=== PATIENT | male | born 1935 | race Caucasian/White ===

== ENCOUNTER 2016-11-22 15:01 | Observation (INO) | payer MEDICARE, OTHER ==
[~2016-11-22] VITALS: Ht 160 cm; Wt 65.4 kg
[~2016-11-22 15:01] MED LIST: ASPI-345 PO; CLOP75TA3 PO; LSNP10T PO; METO25TA60 PO; MTP25TSR PO; NF-ESOM40C PO; OMEP20CA12 PO; SAW450CA4 PO; SIMV5TAB51 PO; SIMV80TA3 PO
[2016-11-22 15:57] LABS: BASOPHILS % (AUTO) 1 % (0-2); EOSINOPHILS # (AUTO) 0.3 10^3uL; EOSINOPHILS % (AUTO) 6 % (0-4); LYMPHOCYTES # (AUTO) 1.5 X10^3; MEAN CORPUSCULAR HEMOGLOBIN 30.3 PG (26.0-34.0); MEAN CORPUSCULAR VOLUME 89 FL (80-100); MEAN PLATELET VOLUME 8.9 FL (6.0-9.5); MONOCYTES # (AUTO) 0.7 X10^3; MONOCYTES % (AUTO) 11 % (3-11); NEUTROPHILS # (AUTO) 3.5 X10^3; NEUTROPHILS % (AUTO) 58 % (51-67); PLATELET COUNT 196 10^3uL (150-450); WHITE BLOOD COUNT 6.01 10^3uL (4.0-11.0)
[2016-11-22 16:10] LABS: ALBUMIN 4.5 g/dL (3.4-5.0); ANION GAP 16.3 MEQ/L (3-15); TOTAL PROTEIN 7.5 g/dL (6.4-8.5)
--- NOTE | 2016-11-22 16:11 | Diagnostic Imaging Report ---
CLINICAL INDICATION: Confusion. EXAM: Axial CT scan of the brain performed without IV contrast. COMPARISON: Head CT without IV contrast dated 07/16/2016. FINDINGS: There is no evidence of acute cerebral infarct, intracranial hemorrhage, or gross mass effect. Again seen focal and patchy areas of low-attenuation white matter changes of both cerebral hemispheres likely representing chronic small vessel ischemic disease. There is stable diffuse brain parenchymal volume loss. There is no significant midline shift or herniation. There is no evidence of hydrocephalus. The basal cisterns are unremarkable. The skull, extracranial soft tissue, and orbits are unremarkable. There is no significant paranasal sinus disease. IMPRESSION: 1: Stable CT scan of the brain with no evidence of acute intracranial process. 2: Age-related brain parenchymal changes with chronic small vessel ischemic disease and brain parenchymal volume loss. Dictated by: Dictated on workstation # [id number]
[2016-11-22] MEDS ORDERED: ASPIRIN 325 MG TAB PO ONE (16:55)
[2016-11-22 18:37] LABS: BILIRUBIN,URINE Negative (Negative); CLARITY,URINE Clear; COLOR,URINE Yellow; GLUCOSE, URINE (UA) Negative (Negative); LEUKOCYTE ESTERASE ,URINE Negative (Negative); PH,URINE 5.5 (5.0 - 8.0); UROBILINOGEN,URINE 0.2 mg/dL (0.2-1.0)
[2016-11-22] MEDS ORDERED: POLYETHYLENE GLYCOL 17 GM (MIRALAX) PACKET PO PRN (19:05)
[2016-11-22] MEDS ORDERED: ACETAMINOPHEN 325 MG TAB (TYLENOL) PO PRN (19:05)
[2016-11-22] MEDS ORDERED: ONDANSETRON 4 MG (ZOFRAN) ORAL DISSOLVE TAB PO PRN (19:05)
[2016-11-22] MEDS ORDERED: PROMETHAZINE HCL INJ 12.5 MG in SODIUM CHLORIDE 25 ML IV PRN (19:05)
[2016-11-22] MEDS ORDERED: MAGNESIUM HYDROXIDE 80MG/ML (MILK OF MAGNESIA) 30 ML UDC PO PRN (19:05)
[2016-11-22] MEDS ORDERED: DOCUSATE SODIUM 100 MG (COLACE) CAP PO PRN (19:05)
[2016-11-22] MEDS ORDERED: ALLO100T PO (19:15)
[2016-11-22] MEDS ORDERED: TAMS0.4C2 PO (19:15)
[2016-11-22 19:30] VITALS: BP 198/109
[2016-11-22 19:32] VITALS: BP 198/109
[2016-11-22 19:33] VITALS: BP 200/80
--- NOTE | 2016-11-22 20:08 | NUR ---
@183- Pt admitted to room 301 via w/c from ED accompanied by Son, Paddy and Amanda El Sup. Pt transfers with 1 SBA to bed. @1844 Pt to Rad for CXR @1934- Pt ate ham sandwich and cookie. Denies pain or other needs. oriented to self and place but confused to month/year and situation. States "I'm just at that point that I forget some things." Oriented to call light and room. Pressure pad and bed alarm in place for patient safety.
[2016-11-22] MEDS ORDERED: HALOPERIDOL 5 MG/ML (HALDOL) 1 ML AMP IV PRN (20:50)
[2016-11-22] MEDS ORDERED: hydrALAZINE 20 MG/ML (APRESOLINE) 1 ML VIAL IV PRN (20:50)
--- NOTE | 2016-11-22 20:50 | History and Physical (E) ---
History & Physical PCP: Hawk Magana MD CC: Confusion, dementia HPI Isidoro Monge is a 81 year old male admitted from ED 11/22 where he presented with acutely worse confusion today. Has dementia but today he had worse confusion. Had difficulty getting into his house. Went to his religious for help. Called son, called PCP. Was eventually brought to ED. ED exam reportedly unremarkable (NIH stroke scale score = 0) and labs were reassuring. UA was negative for UTI. CT head negative for acute changes. CXR not suggestive of acute process. For concern of acute confusion and for benefit of further observation, he was admitted. On arrival to unit, interactive, pleasant. NAD. Family left. Patient provides history. Oriented to place. Did not know year without looking on marker board. Despite seeing the month number, he couldn't recall "October." Could not recall day of week. Oriented to place and self. States he is here because his sons were afraid "I was starting to lose it." Has poor recall of events earlier today. Does not recall problems getting into his house or seeking help at religious. PMH * Dementia * HTN * HLD * GERD * IA * CAD * testicular torsion PSH * testicular torsion repair? * hernia repair * carpal tunnel release * EGD ALLERGIES: Please see list at end of report. HOME MEDICATIONS: Please see list at end of report. FH Mom of unknown causes. Father of lung disease (smoker). SH . Retired. Lives with son in [place]. Remote history of tobacco use but none currently. No drug use or alcohol use. ROS Obtained from patient but he has questionable recall. CONSTITUTION: Denies weight loss or gain. Denies fever or chills. HEENT: No change in vision or hearing. No sores in mouth, sore throat. CV: No chest pain, palpitations. PULM: No cough, shortness of breath, difficulty breathing. GI: No upset stomach, nausea, vomiting, constipation, or diarrhea. No blood in stool. : No dysuria. No blood in urine. MS: No new muscle or joint aches and pains. NEURO: No numbness or tingling. No weakness. INTEG: No rashes, lesions, or sores. ENDO: No heat or cold intolerance. HEME/LYMPH: No easy bruising or bleeding. No swollen glands. PSYCH: No change in mood or behavior. OBJECTIVE Vital Signs Date Time Temp Pulse Resp B/P Pulse Ox O2 Delivery O2 Flow Rate FiO2 11/22/16 16:16 97.6 69 18 98 Room Air 11/22/16 15:13 182/95 GEN: Awake, interactive, pleasantly disoriented but able to answer questions and complete tasks. HEENT: EOMI, clear sclerae, pupils equal. Moist oral mucosa. CV: RRR S1 S2 normal with no murmur LUNGS: CTA B without R/R/W. ABD: Soft, NT/ND with normal bowel sounds. EXTR: No C/C/E. Normal peripheral pulses. INTEG: No rash. Age related changes. NEURO: No focal motor neuro deficit. NIH stroke scale score in ED = 0. Weight: 65.2 kg Laboratory Results-14 Days 11/22/16 13:46: Alanine Aminotransferase (ALT/SGPT) 42, Albumin 4.5, Albumin/Globulin Ratio 1.500, Alkaline Phosphatase 106, Anion Gap 16.3H, Aspartate Amino Transf (AST/ SGOT) 31, BUN/Creatinine Ratio 15, Basophils # (Auto) 0.0, Basophils (%) (Auto) 1, Blood Urea Nitrogen 16, Calcium Level 9.4, Calcium/Ionized Calcium Ratio 4.0 , Calculated Osmolality 275L, Carbon Dioxide Level 22, Chloride Level 107, Creatinine 1.09, Eosinophils # (Auto) 0.3, Eosinophils (%) (Auto) 6H, Estimat Glomerular Filtration Rate 78.2, Estimated GFR (Non- 64.6, Glucose Level 98#, Hematocrit 44.70, Hemoglobin 15.2, Lymphocytes # (Auto) 1.5, Lymphocytes (%) (Auto) 24, Mean Corpuscular Hemoglobin 30.3, Mean Corpuscular Hemoglobin Concent 34.0, Mean Corpuscular Volume 89, Mean Platelet Volume 8.9, Monocytes # (Auto) 0.7, Monocytes (%) (Auto) 11, Neutrophils # (Auto) 3.5, Neutrophils (%) (Auto) 58, Platelet Count 196, Potassium Level 3.8, Red Blood Count 5.01, Red Cell Distribution Width 12.7, Sodium Level 142, Total Bilirubin 1.1H, Total Protein 7.5, White Blood Count 6.01 11/22/16 17:25: Urine Bilirubin Negative, Urine Blood Negative, Urine Clarity Clear, Urine Collection Type Clean catch, Urine Color Yellow, Urine Glucose (UA) Negative, Urine Ketones Negative, Urine Leukocyte Esterase Negative, Urine Nitrite Negative, Urine Protein Negative, Urine Specific [place] 1.020, Urine Urobilinogen 0.2, Urine pH 5.5 IMAGING 11/22/16 CXR: Radiologist interpretation pending. No apparent acute changes. 11/22/16 CT HEAD WO CLINICAL INDICATION: Confusion. EXAM: Axial CT scan of the brain performed without IV contrast. COMPARISON: Head CT without IV contrast dated 07/16/2016. FINDINGS: There is no evidence of acute cerebral infarct, intracranial hemorrhage, or gross mass effect. Again seen focal and patchy areas of low-attenuation white matter changes of both cerebral hemispheres likely representing chronic small vessel ischemic disease. There is stable diffuse brain parenchymal volume loss. There is no significant midline shift or herniation. There is no evidence of hydrocephalus. The basal cisterns are unremarkable. The skull, extracranial soft tissue, and orbits are unremarkable. There is no significant paranasal sinus disease. IMPRESSION: 1: Stable CT scan of the brain with no evidence of acute intracranial process. 2: Age-related brain parenchymal changes with chronic small vessel ischemic disease and brain parenchymal volume loss. ASSESSMENT Isidoro Monge is a 81 year old male admitted from ED 11/22 where he presented from home with increased confusion in the setting of known dementia. He had workup that was fairly unremarkable but he was noted to have hypertension with BP 200's/100's PLAN * Hypertensive Urgency: Possibly explains his acute mental status change today. Takes metoprolol and lisinopril at home. Continued both. Hydralazine for SBP > 165 or DBP > 100. * Delirium: Attributed to hypertension. Infections and inflammatory etiologies less likely based on workup thus far. CT head showed no acute changes. For agitation, PRN haloperidol. * HTN, Uncontrolled: Metoprolol, lisinopril continued. Dose of lisinopril increased. * F/E/N: Encourage fluid intake. Regular diet. Peripheral IV. I&O, daily weight. * Prophylaxis: Enoxaparin * Code Status: Full * Dispo: Observation pending utilization review and further workup. CHRONIC ISSUES * BPH: Tamsulosin * Dementia Observe. * HLD: Simvastatin * GERD: Pantoprazole (sub for omeprazole) Allergies/Home Medications Allergies: Coded Allergies: No Known Drug Allergies (Unverified , 07/16/16) Reported Home Medications Scheduled Allopurinol (Allopurinol) 100 MG PO DAILY (Reported) Aspirin (Aspirin) 81 MG PO DAILY (Reported) Lisinopril (Lisinopril) 10 MG PO DAILY (Reported) Metoprolol Tartrate (Metoprolol Tartrate) 25 MG PO BID (Reported) Omeprazole (Omeprazole) 20 PO DAILY (Reported) Simvastatin (Simvastatin) 80 MG PO HS (Reported) Tamsulosin HCl (Tamsulosin HCl) 0.4 MG PO DAILY (Reported) Copies to: End of Report . ASHTYN HERMOSILLO MD Nov 22, 2016 19:02
[2016-11-22] MEDS: meTOprolol TARTRATE 25 MG (LOPRESSOR) TABLET PO SCH (21:03)
[2016-11-22] MEDS: SIMvastatin 40 MG (ZOCOR) TAB PO SCH (21:03)
[2016-11-23 00:06] VITALS: BP 152/76
[2016-11-23 06:03] LABS: BASOPHILS % (AUTO) 0 % (0-2); EOSINOPHILS # (AUTO) 0.2 10^3uL; EOSINOPHILS % (AUTO) 4 % (0-4); LYMPHOCYTES # (AUTO) 1.3 X10^3; MEAN CORPUSCULAR HEMOGLOBIN 30.3 PG (26.0-34.0); MEAN CORPUSCULAR HGB CONC 33.9 g/dL (31.0-37.0); MEAN CORPUSCULAR VOLUME 90 FL (80-100); MEAN PLATELET VOLUME 9.3 FL (6.0-9.5); MONOCYTES # (AUTO) 0.7 X10^3; MONOCYTES % (AUTO) 11 % (3-11); NEUTROPHILS # (AUTO) 3.7 X10^3; NEUTROPHILS % (AUTO) 63 % (51-67); PLATELET COUNT 196 10^3uL (150-450); WHITE BLOOD COUNT 5.94 10^3uL (4.0-11.0)
[2016-11-23] MEDS: PANTOPRAZOLE 40 MG (PROTONIX) TAB PO SCH (06:21)
--- NOTE | 2016-11-23 06:28 | NUR ---
Rested off and on throughout the night. Pleasant, talkative, is ready to leave as does not like the alarms that sound when he gets up. In recliner this morning watching TV, ate cookie, denies complaints or needs other than going home.
[2016-11-23 06:57] LABS: ANION GAP 16.8 MEQ/L (3-15)
--- NOTE | 2016-11-23 07:38 | NUR ---
Pt up and getting ready to go home. Pt is confused and does not want to stay in the hospital. Pt has a tabs alarm on but continues to get up out of the chair. Pt is alert but not oriented x4.
[2016-11-23 07:48] VITALS: BP 189/86
--- NOTE | 2016-11-23 07:52 | Diagnostic Imaging Report ---
INDICATION: Confusion. Comparison is made with prior examination of 07/16/16. FINDINGS: There is cardiomegaly. Mediastinum is unremarkable. There is no pleural effusion, pneumothorax or pneumonia. IMPRESSION: No acute cardiopulmonary abnormality. Cardiomegaly. Dictated by: Dictated on workstation # [id number]
[2016-11-23] MEDS: ASPIRIN 81 MG CHEW (LOW-DOSE) PO SCH (08:38)
[2016-11-23] MEDS: TAMSULOSIN 0.4 MG (FLOMAX) CAP PO SCH (08:38)
[2016-11-23] MEDS: ALLOPURINOL 100 MG (ZYLOPRIM) TAB PO SCH (08:38)
[2016-11-23] MEDS: lisINopril 20 MG (PRINIVIL) TABLET PO SCH (08:38)
[2016-11-23] MEDS: meTOprolol TARTRATE 25 MG (LOPRESSOR) TABLET PO SCH ×2 (08:38→20:25)
[2016-11-23] MEDS: ENOXAPARIN 40 MG/0.4 ML (LOVENOX) SYR SC SCH (08:39)
--- NOTE | 2016-11-23 10:00 | NUR ---
Sons sitting at bedside talking to pt. Pt continues to want to go home with son.
[2016-11-23] MEDS ORDERED: SMV20T PO (10:22)
--- NOTE | 2016-11-23 10:22 | Progress Note (E) ---
Progress Note SUBJECTIVE Overnight, no major issues reported. Still remains fairly hypertensive with BP 189/86 currently. Giving hydralazine PRN. Already takes lisinopril and metoprolol (BID). HR already mildly bradycardic so no room to increase metoprolol. Adding HCTZ. Continuing observation to assess for mental status changes and response to BP therapy. Sons present. Updated all on findings, plan of care. Sons don't know what dementia workup was done by PCP. Suggested checking B12 but deferring to PCP otherwise. OBJECTIVE Vital Signs Date Time Temp Pulse Resp B/P Pulse Ox O2 Delivery O2 Flow Rate FiO2 11/23/16 07:48 97.1 54 18 189/86 98 Room air 11/22/16 19:32 o.00 I & O 11/22/16 11/23/16 Cumulative From/Thru 19:00 07:00 11/22/16 15:13 - 11/23/16 05:46 Intake Total 337 ml 337 ml Output Total 600 ml 600 ml Balance -263 ml -263 ml GEN: Awake, interactive, pleasantly disoriented but has better recall of recent events. Dressed in home clothes. HEENT: EOMI, clear sclerae, pupils equal. Moist oral mucosa. CV: RRR S1 S2 normal with no murmur LUNGS: CTA B without R/R/W. ABD: Soft, NT/ND with normal bowel sounds. EXTR: No C/C/E. Normal peripheral pulses. INTEG: No rash. Age related changes. NEURO: No focal motor neuro deficit. NIH stroke scale score in ED = 0. Lab-Past 14 Days, 35 Results 11/22/16 13:46: Alanine Aminotransferase (ALT/SGPT) 42, Albumin 4.5, Albumin/Globulin Ratio 1.500, Alkaline Phosphatase 106, Anion Gap 16.3H, Aspartate Amino Transf (AST/ SGOT) 31, BUN/Creatinine Ratio 15, Basophils # (Auto) 0.0, Basophils (%) (Auto) 1, Blood Urea Nitrogen 16, C-Reactive Protein < 0.50, Calcium Level 9.4, Calcium /Ionized Calcium Ratio 4.0, Calculated Osmolality 275L, Carbon Dioxide Level 22 , Chloride Level 107, Creatinine 1.09, Eosinophils # (Auto) 0.3, Eosinophils (% ) (Auto) 6H, Estimat Glomerular Filtration Rate 78.2, Estimated GFR (Non- 64.6, Glucose Level 98#, Hematocrit 44.70, Hemoglobin 15.2, Lymphocytes # (Auto) 1.5, Lymphocytes (%) (Auto) 24, Mean Corpuscular Hemoglobin 30.3, Mean Corpuscular Hemoglobin Concent 34.0, Mean Corpuscular Volume 89, Mean Platelet Volume 8.9, Monocytes # (Auto) 0.7, Monocytes (%) (Auto ) 11, Neutrophils # (Auto) 3.5, Neutrophils (%) (Auto) 58, Platelet Count 196, Potassium Level 3.8, Red Blood Count 5.01, Red Cell Distribution Width 12.7, Sodium Level 142, Total Bilirubin 1.1H, Total Protein 7.5, White Blood Count 6.01 11/22/16 17:25: Urine Bilirubin Negative, Urine Blood Negative, Urine Clarity Clear, Urine Collection Type Clean catch, Urine Color Yellow, Urine Glucose (UA) Negative, Urine Ketones Negative, Urine Leukocyte Esterase Negative, Urine Nitrite Negative, Urine Protein Negative, Urine Specific [place] 1.020, Urine Urobilinogen 0.2, Urine pH 5.5 11/23/16 05:00: Albumin 4.0, Anion Gap 16.8H, Basophils # (Auto) 0.0, Basophils (%) (Auto) 0, Blood Urea Nitrogen 19H, Calcium Level 9.4, Carbon Dioxide Level 23, Chloride Level 109H, Creatinine 1.20, Eosinophils # (Auto) 0.2, Eosinophils (%) (Auto) 4 , Estimat Glomerular Filtration Rate 70.0, Estimated GFR (Non- 57.8, Glucose Level 91, Hematocrit 43.70, Hemoglobin 14.8, Lymphocytes # (Auto) 1.3, Lymphocytes (%) (Auto) 21, Mean Corpuscular Hemoglobin 30.3, Mean Corpuscular Hemoglobin Concent 33.9, Mean Corpuscular Volume 90, Mean Platelet Volume 9.3, Monocytes # (Auto) 0.7, Monocytes (%) (Auto) 11, Neutrophils # (Auto ) 3.7, Neutrophils (%) (Auto) 63, Platelet Count 196, Potassium Level 4.2, Red Blood Count 4.88, Red Cell Distribution Width 12.8, Sodium Level 145, White Blood Count 5.94, Phosphorus Level 3.7 IMAGING 11/22/16 CHEST PA/LAT (2 VIEW)* INDICATION: Confusion. Comparison is made with prior examination of 07/16/16. FINDINGS: There is cardiomegaly. Mediastinum is unremarkable. There is no pleural effusion, pneumothorax or pneumonia. IMPRESSION: No acute cardiopulmonary abnormality. 11/22/16 CT HEAD WO CLINICAL INDICATION: Confusion. EXAM: Axial CT scan of the brain performed without IV contrast. COMPARISON: Head CT without IV contrast dated 07/16/2016. FINDINGS: There is no evidence of acute cerebral infarct, intracranial hemorrhage, or gross mass effect. Again seen focal and patchy areas of low-attenuation white matter changes of both cerebral hemispheres likely representing chronic small vessel ischemic disease. There is stable diffuse brain parenchymal volume loss. There is no significant midline shift or herniation. There is no evidence of hydrocephalus. The basal cisterns are unremarkable. The skull, extracranial soft tissue, and orbits are unremarkable. There is no significant paranasal sinus disease. IMPRESSION: 1: Stable CT scan of the brain with no evidence of acute intracranial process. 2: Age-related brain parenchymal changes with chronic small vessel ischemic disease and brain parenchymal volume loss. ASSESSMENT Isidoro Monge is a 81 year old male admitted from ED 11/22 where he presented from home with increased confusion in the setting of known dementia. He had workup that was fairly unremarkable but he was noted to have hypertension with BP 200's/100's PLAN * Hypertensive Urgency: Possibly explains his acute mental status change today. Takes metoprolol and lisinopril at home. Continued both. Hydralazine for SBP > 165 or DBP > 100. * HTN, Uncontrolled: Metoprolol, lisinopril continued. Dose of lisinopril increased. Added HCTZ 11/23. * Delirium: Attributed to hypertension. Infections and inflammatory etiologies less likely based on workup thus far. CT head showed no acute changes. For agitation, PRN haloperidol. * Cognitive Decline: Check B12, methylmalonic acid. * F/E/N: Encourage fluid intake. Regular diet. Peripheral IV. I&O, daily weight. * Prophylaxis: Enoxaparin * Code Status: Full * Dispo: Observation pending utilization review and further workup. Possible D/ C 11/24 if BP improving. CHRONIC ISSUES * BPH: Tamsulosin * HLD: Simvastatin * GERD: Pantoprazole (sub for omeprazole) ASHTYN HERMOSILLO MD Nov 23, 2016 10:22
--- NOTE | 2016-11-23 12:09 | NUR ---
Med Rec partially completed via conversation with son, call to [facility] and bag of medications to verify. Feel that list may be incomplete and would like to call office friday to confirm.
[2016-11-23] MEDS: HYDROCHLOROTHIAZIDE 25 MG (HCTZ) TAB PO SCH (15:30)
[2016-11-23 15:36] VITALS: BP 125/55
[2016-11-23 19:39] VITALS: BP 125/63
[2016-11-23] MEDS: SIMvastatin 40 MG (ZOCOR) TAB PO SCH (20:25)
--- NOTE | 2016-11-23 21:02 | NUR ---
Does not like the tab alarm while seated in recliner, removes it and states "that thing drives me crazy". Ate ice cream at nurses station, pills whole, ambulated mitchell with staff. Stated he was tired and ready for bed.
[2016-11-24 00:36] VITALS: BP 122/47
[2016-11-24] MEDS: PANTOPRAZOLE 40 MG (PROTONIX) TAB PO SCH (06:19)
[2016-11-24 06:55] LABS: ALBUMIN 3.9 g/dL (3.4-5.0); ANION GAP 16.2 MEQ/L (3-15)
--- NOTE | 2016-11-24 07:15 | NUR ---
Report received from Elisa MANCINI and care assumed.
[2016-11-24 08:04] VITALS: BP 155/63
[2016-11-24] MEDS: lisINopril 20 MG (PRINIVIL) TABLET PO SCH (08:41)
[2016-11-24] MEDS: ENOXAPARIN 40 MG/0.4 ML (LOVENOX) SYR SC SCH (08:41)
[2016-11-24] MEDS: ASPIRIN 81 MG CHEW (LOW-DOSE) PO SCH (08:42)
[2016-11-24] MEDS: TAMSULOSIN 0.4 MG (FLOMAX) CAP PO SCH (08:42)
[2016-11-24] MEDS: HYDROCHLOROTHIAZIDE 25 MG (HCTZ) TAB PO SCH (08:42)
[2016-11-24] MEDS: ALLOPURINOL 100 MG (ZYLOPRIM) TAB PO SCH (08:42)
--- NOTE | 2016-11-24 08:44 | Progress Note (E) ---
Progress Note SUBJECTIVE Bradycardic but BP improved. Noted he takes metoprolol tartrate 25 mg BID. Could bradycardia be contributing to confusion? Switched from tartrate to succinate, 25 mg daily. Had increased lisinopril and added HCTZ for BP which is overall improved. Mentation has been stable this admission. He remains pleasant and interactive and has fair recall of events while in hospital. OBJECTIVE Vital Signs Date Time Temp Pulse Resp B/P Pulse Ox O2 Delivery O2 Flow Rate FiO2 11/24/16 08:04 96.8 49 18 155/63 99 Room air o.00 I & O 11/23/16 11/24/16 Cumulative From/Thru 19:00 07:00 11/22/16 15:13 - 11/24/16 05:00 Intake Total 337 ml 775 ml 1449 ml Output Total 400 ml 250 ml 1250 ml Balance -63 ml 525 ml 199 ml GEN: Awake, interactive, pleasantly disoriented but has better recall of recent events. HEENT: EOMI, clear sclerae, pupils equal. Moist oral mucosa. CV: RRR S1 S2 normal with no murmur LUNGS: CTA B without R/R/W. ABD: Soft, NT/ND with normal bowel sounds. EXTR: No C/C/E. Normal peripheral pulses. INTEG: No rash. Age related changes. NEURO: No focal motor neuro deficit. NIH stroke scale score in ED = 0. Lab-Past 14 Days, 35 Results 11/22/16 13:46: Alanine Aminotransferase (ALT/SGPT) 42, Albumin 4.5, Albumin/Globulin Ratio 1.500, Alkaline Phosphatase 106, Anion Gap 16.3H, Aspartate Amino Transf (AST/ SGOT) 31, BUN/Creatinine Ratio 15, Basophils # (Auto) 0.0, Basophils (%) (Auto) 1, Blood Urea Nitrogen 16, C-Reactive Protein < 0.50, Calcium Level 9.4, Calcium /Ionized Calcium Ratio 4.0, Calculated Osmolality 275L, Carbon Dioxide Level 22 , Chloride Level 107, Creatinine 1.09, Eosinophils # (Auto) 0.3, Eosinophils (% ) (Auto) 6H, Estimat Glomerular Filtration Rate 78.2, Estimated GFR (Non- 64.6, Glucose Level 98#, Hematocrit 44.70, Hemoglobin 15.2, Lymphocytes # (Auto) 1.5, Lymphocytes (%) (Auto) 24, Mean Corpuscular Hemoglobin 30.3, Mean Corpuscular Hemoglobin Concent 34.0, Mean Corpuscular Volume 89, Mean Platelet Volume 8.9, Monocytes # (Auto) 0.7, Monocytes (%) (Auto ) 11, Neutrophils # (Auto) 3.5, Neutrophils (%) (Auto) 58, Platelet Count 196, Potassium Level 3.8, Red Blood Count 5.01, Red Cell Distribution Width 12.7, Sodium Level 142, Total Bilirubin 1.1H, Total Protein 7.5, White Blood Count 6.01 11/22/16 17:25: Urine Bilirubin Negative, Urine Blood Negative, Urine Clarity Clear, Urine Collection Type Clean catch, Urine Color Yellow, Urine Glucose (UA) Negative, Urine Ketones Negative, Urine Leukocyte Esterase Negative, Urine Nitrite Negative, Urine Protein Negative, Urine Specific [place] 1.020, Urine Urobilinogen 0.2, Urine pH 5.5 11/23/16 05:00: Albumin 4.0, Anion Gap 16.8H, Basophils # (Auto) 0.0, Basophils (%) (Auto) 0, Blood Urea Nitrogen 19H, Calcium Level 9.4, Carbon Dioxide Level 23, Chloride Level 109H, Creatinine 1.20, Eosinophils # (Auto) 0.2, Eosinophils (%) (Auto) 4 , Estimat Glomerular Filtration Rate 70.0, Estimated GFR (Non- 57.8, Glucose Level 91, Hematocrit 43.70, Hemoglobin 14.8, Lymphocytes # (Auto) 1.3, Lymphocytes (%) (Auto) 21, Mean Corpuscular Hemoglobin 30.3, Mean Corpuscular Hemoglobin Concent 33.9, Mean Corpuscular Volume 90, Mean Platelet Volume 9.3, Monocytes # (Auto) 0.7, Monocytes (%) (Auto) 11, Neutrophils # (Auto ) 3.7, Neutrophils (%) (Auto) 63, Platelet Count 196, Potassium Level 4.2, Red Blood Count 4.88, Red Cell Distribution Width 12.8, Sodium Level 145, White Blood Count 5.94, Phosphorus Level 3.7 11/24/16 05:00: Albumin 3.9, Anion Gap 16.2H, Blood Urea Nitrogen 24H, Calcium Level 9.4, Carbon Dioxide Level 22, Chloride Level 108, Creatinine 1.40, Estimat Glomerular Filtration Rate 58.6, Estimated GFR (Non- 48.4, Glucose Level 100, Potassium Level 4.1, Sodium Level 143, Phosphorus Level 3.8, Methylmalonic Acid [Pending], Vitamin B12 Level [Pending] IMAGING 11/22/16 CHEST PA/LAT (2 VIEW)* INDICATION: Confusion. Comparison is made with prior examination of 07/16/16. FINDINGS: There is cardiomegaly. Mediastinum is unremarkable. There is no pleural effusion, pneumothorax or pneumonia. IMPRESSION: No acute cardiopulmonary abnormality. 11/22/16 CT HEAD WO CLINICAL INDICATION: Confusion. EXAM: Axial CT scan of the brain performed without IV contrast. COMPARISON: Head CT without IV contrast dated 07/16/2016. FINDINGS: There is no evidence of acute cerebral infarct, intracranial hemorrhage, or gross mass effect. Again seen focal and patchy areas of low-attenuation white matter changes of both cerebral hemispheres likely representing chronic small vessel ischemic disease. There is stable diffuse brain parenchymal volume loss. There is no significant midline shift or herniation. There is no evidence of hydrocephalus. The basal cisterns are unremarkable. The skull, extracranial soft tissue, and orbits are unremarkable. There is no significant paranasal sinus disease. IMPRESSION: 1: Stable CT scan of the brain with no evidence of acute intracranial process. 2: Age-related brain parenchymal changes with chronic small vessel ischemic disease and brain parenchymal volume loss. REFERENCE 02/14/2016 ECHO: Summary: 1. LVEF 50%. 2. No pericardial effusion. 3. Mild . 4. Mild AV regurgitation. 5. LUKE calculated at 1.9 cm2. 6. Mild pulmonary valve regurgitation. 7. Mild tricuspid valve regurgitation. ASSESSMENT Isidoro Monge is a 81 year old male admitted from ED 11/22 where he presented from home with increased confusion in the setting of known dementia. He had workup that was fairly unremarkable but he was noted to have hypertension with BP 200's/100's. Uncontrolled hypertension was treated as outlined. He remained pleasantly disoriented to time and mildly to situation but had returned to baseline. PLAN * Hypertensive Urgency: Possibly explains his acute mental status change on admit. Takes metoprolol and lisinopril at home. Continued both. Hydralazine for SBP > 165 or DBP > 100. * HTN, Uncontrolled: Metoprolol, lisinopril continued. Dose of lisinopril increased. Added HCTZ 11/23. On 11/24, bradycardia was noted so metoprolol was switched to succinate, 25 mg daily (an overall 25 mg reduction in total daily dose.) * Bradycardia: Due to metoprolol, most likely. Lowered dose as discussed. Consider further adjustments if bradycardia persists. * Delirium: Attributed to hypertension. Infections and inflammatory etiologies less likely based on workup thus far. CT head showed no acute changes. For agitation, PRN haloperidol. * Cognitive Decline: Check B12, methylmalonic acid. * F/E/N: Encourage fluid intake. Regular diet. Peripheral IV. I&O, daily weight. * Prophylaxis: Enoxaparin * Code Status: Full * Dispo: Observation. Possible D/C 11/24. CHRONIC ISSUES * BPH: Tamsulosin * HLD: Simvastatin * GERD: Pantoprazole (sub for omeprazole) ASHTYN HERMOSILLO MD Nov 24, 2016 08:44
[2016-11-24] MEDS ORDERED: NS FLUSH 10 ML PRN IV (09:00)
[2016-11-24] MEDS ORDERED: D5W 50 ML BAG IV PRN (09:00)
[2016-11-24] MEDS ORDERED: NS FLUSH 3 ML PRN IV (09:00)
[2016-11-24] MEDS ORDERED: NS FLUSH 3 ML DAILY IV SCH (09:00)
--- NOTE | 2016-11-24 09:05 | NUR ---
Pt sitting up in chair at bedside. Pt has eaten breakfast and is content to sit in chair.
--- NOTE | 2016-11-24 10:25 | NUR ---
Pt resting in bed with sons at bedside. Pt requested coffee be taken away and he would like a coke. Coke given to pt. Denies needs at present.
--- NOTE | 2016-11-24 11:53 | NUR ---
Pt up to chair at bedside ready for lunch.
[2016-11-24] MEDS ORDERED: HCT25T PO (13:15)
[2016-11-24] MEDS ORDERED: METO25TA60 PO (13:15)
[2016-11-24] MEDS ORDERED: LSNP20T PO (13:15)
--- NOTE | 2016-11-24 13:15 | Discharge Instructions (E) ---
Discharge Instructions Instructions * You were evaluated and treated for an episode of increased confusion. Based on the workup done in the hospital, there was no clear cause of this episode. You were, however, noted to have high blood pressure and this can sometimes lead to transient confusion. (This is called "hypertensive urgency.") Because of this your blood pressure medications have been adjusted. Review your discharge medication list and the drug handouts provided. * Your B12 level was checked prior to discharge. If this is low your doctor can order B12 supplements. * You had a CT scan of your head which showed no acute changes to account for confusion. An MRI can provide additional information. A prescription for brain MRI was provided at discharge. Call the [facility] Radiology Department on Friday to schedule the MRI. * You were noted to have slow heart rate during this hospitalization. This could lead to poor circulation in the brain and could contribute to confusion. Even though you had high blood pressure this admission, your dose of metoprolol should be lowered because it can cause low heart rate. You can split your current pills in half. See your discharge medication list for details. * To help in your recovery, outpatient physical and occupational therapy have been ordered. Called the [facility] Therapy Department on Friday to schedule your visit. Activity Instructions Because of episodes of confusion, you should no longer drive. Doctor's Appointment Follow-up with your primary care doctor in 3-5 days. Have your MRI scheduled at [facility]. Call the therapy department as directed to scheduled outpatient physical therapy and occupational therapy. Discharge Diet: Heart Healthy ASHTYN HERMOSILLO MD Nov 24, 2016 13:15
--- NOTE | 2016-11-24 14:00 | NUR ---
IV DC'd from [facility] - pressure held until bleeding stopped - drsg applied - no redness or swelling
--- NOTE | 2016-11-24 14:23 | NUR ---
Reviewed discharge medications with patient. Provided patient handout information for new medications. No additional questions or concerns. Patient verbalized understanding of medications.
--- NOTE | 2016-11-24 17:32 | Discharge Summary (E) ---
Discharge Summary (E) Admit Date/Time Nov 22, 2016 at 18:06 Discharge Date/Time Nov 24, 2016 at 14:26 Admitting Provider Juliano Deleon MD Primary Care Provider Hawk Magana MD Attending Provider Juliano Deleon MD Consulting Provider History and Present Illness Isidoro Monge is a 81 year old male admitted from ED 11/22 where he presented from home with increased confusion in the setting of known dementia. He had workup that was fairly unremarkable but he was noted to have hypertension with BP 200's/100's. This was felt to potentially play a role in his episode of acute confusion. Uncontrolled hypertension was treated as outlined. He remained pleasantly disoriented to time and mildly to situation but had returned to baseline mental status at the time of discharge. Updated patient and sons on findings and plan of care. He was discharged home with changes to blood pressure medications as well as other instructions as noted below. Hospital Course and Treatment * Hypertensive Urgency: Possibly explains his acute mental status change on admit. Takes metoprolol and lisinopril at home. Continued both. Hydralazine for SBP > 165 or DBP > 100. At discharge, changed his BP medication regimen as outlined. * HTN, Uncontrolled: Metoprolol, lisinopril continued. Dose of lisinopril increased. Added HCTZ 11/23. On 11/24, bradycardia was noted so metoprolol was switched to succinate, 25 mg daily (an overall 25 mg reduction in total daily dose.) But at discharge, metoprolol tartrate was continued with instruction to split these pills in half. * Bradycardia: Due to metoprolol, most likely. Lowered dose as discussed. Consider further adjustments if bradycardia persists. * Delirium: Attributed to hypertension. Infections and inflammatory etiologies less likely based on workup thus far. CT head showed no acute changes. For agitation, PRN haloperidol but none was needed. His mental status improved to baseline before discharge. * Cognitive Decline: Check B12, methylmalonic acid, both pending at the time of discharge. For further workup of dementia, MRI could be done as outpatient. Ordered on discharge. OT evaluation ordered at discharge to see if there are other interventions for cognitive deficits that would help. * F/E/N: Encourage fluid intake. Regular diet. Peripheral IV. I&O, daily weight. * Prophylaxis: Enoxaparin * Code Status: Full * Dispo: Observation. D/C home 11/24. CHRONIC ISSUES * BPH: Tamsulosin * HLD: Simvastatin * GERD: Pantoprazole (sub for omeprazole) Discharge Physicial Exam General Vital Signs Date Time Temp Pulse Resp B/P Pulse Ox O2 Delivery O2 Flow Rate FiO2 11/24/16 08:04 96.8 49 18 155/63 99 Room air o.00 GEN: Awake, interactive, pleasantly disoriented but has better recall of recent events. HEENT: EOMI, clear sclerae, pupils equal. Moist oral mucosa. CV: RRR S1 S2 normal with no murmur LUNGS: CTA B without R/R/W. ABD: Soft, NT/ND with normal bowel sounds. EXTR: No C/C/E. Normal peripheral pulses. INTEG: No rash. Age related changes. NEURO: No focal motor neuro deficit. NIH stroke scale score in ED = 0. Laboratory/Radiology Data Lab-Past 14 Days, 35 Results 11/22/16 13:46: Alanine Aminotransferase (ALT/SGPT) 42, Albumin 4.5, Albumin/Globulin Ratio 1.500, Alkaline Phosphatase 106, Anion Gap 16.3H, Aspartate Amino Transf (AST/ SGOT) 31, BUN/Creatinine Ratio 15, Basophils # (Auto) 0.0, Basophils (%) (Auto) 1, Blood Urea Nitrogen 16, C-Reactive Protein < 0.50, Calcium Level 9.4, Calcium /Ionized Calcium Ratio 4.0, Calculated Osmolality 275L, Carbon Dioxide Level 22 , Chloride Level 107, Creatinine 1.09, Eosinophils # (Auto) 0.3, Eosinophils (% ) (Auto) 6H, Estimat Glomerular Filtration Rate 78.2, Estimated GFR (Non- 64.6, Glucose Level 98#, Hematocrit 44.70, Hemoglobin 15.2, Lymphocytes # (Auto) 1.5, Lymphocytes (%) (Auto) 24, Mean Corpuscular Hemoglobin 30.3, Mean Corpuscular Hemoglobin Concent 34.0, Mean Corpuscular Volume 89, Mean Platelet Volume 8.9, Monocytes # (Auto) 0.7, Monocytes (%) (Auto ) 11, Neutrophils # (Auto) 3.5, Neutrophils (%) (Auto) 58, Platelet Count 196, Potassium Level 3.8, Red Blood Count 5.01, Red Cell Distribution Width 12.7, Sodium Level 142, Total Bilirubin 1.1H, Total Protein 7.5, White Blood Count 6.01 11/22/16 17:25: Urine Bilirubin Negative, Urine Blood Negative, Urine Clarity Clear, Urine Collection Type Clean catch, Urine Color Yellow, Urine Glucose (UA) Negative, Urine Ketones Negative, Urine Leukocyte Esterase Negative, Urine Nitrite Negative, Urine Protein Negative, Urine Specific [place] 1.020, Urine Urobilinogen 0.2, Urine pH 5.5 11/23/16 05:00: Albumin 4.0, Anion Gap 16.8H, Basophils # (Auto) 0.0, Basophils (%) (Auto) 0, Blood Urea Nitrogen 19H, Calcium Level 9.4, Carbon Dioxide Level 23, Chloride Level 109H, Creatinine 1.20, Eosinophils # (Auto) 0.2, Eosinophils (%) (Auto) 4 , Estimat Glomerular Filtration Rate 70.0, Estimated GFR (Non- 57.8, Glucose Level 91, Hematocrit 43.70, Hemoglobin 14.8, Lymphocytes # (Auto) 1.3, Lymphocytes (%) (Auto) 21, Mean Corpuscular Hemoglobin 30.3, Mean Corpuscular Hemoglobin Concent 33.9, Mean Corpuscular Volume 90, Mean Platelet Volume 9.3, Monocytes # (Auto) 0.7, Monocytes (%) (Auto) 11, Neutrophils # (Auto ) 3.7, Neutrophils (%) (Auto) 63, Platelet Count 196, Potassium Level 4.2, Red Blood Count 4.88, Red Cell Distribution Width 12.8, Sodium Level 145, White Blood Count 5.94, Phosphorus Level 3.7 11/24/16 05:00: Albumin 3.9, Anion Gap 16.2H, Blood Urea Nitrogen 24H, Calcium Level 9.4, Carbon Dioxide Level 22, Chloride Level 108, Creatinine 1.40, Estimat Glomerular Filtration Rate 58.6, Estimated GFR (Non- 48.4, Glucose Level 100, Potassium Level 4.1, Sodium Level 143, Phosphorus Level 3.8, Methylmalonic Acid [Pending], Vitamin B12 Level [Pending] IMAGING 11/22/16 CHEST PA/LAT (2 VIEW)* INDICATION: Confusion. Comparison is made with prior examination of 07/16/16. FINDINGS: There is cardiomegaly. Mediastinum is unremarkable. There is no pleural effusion, pneumothorax or pneumonia. IMPRESSION: No acute cardiopulmonary abnormality. 11/22/16 CT HEAD WO CLINICAL INDICATION: Confusion. EXAM: Axial CT scan of the brain performed without IV contrast. COMPARISON: Head CT without IV contrast dated 07/16/2016. FINDINGS: There is no evidence of acute cerebral infarct, intracranial hemorrhage, or gross mass effect. Again seen focal and patchy areas of low-attenuation white matter changes of both cerebral hemispheres likely representing chronic small vessel ischemic disease. There is stable diffuse brain parenchymal volume loss. There is no significant midline shift or herniation. There is no evidence of hydrocephalus. The basal cisterns are unremarkable. The skull, extracranial soft tissue, and orbits are unremarkable. There is no significant paranasal sinus disease. IMPRESSION: 1: Stable CT scan of the brain with no evidence of acute intracranial process. 2: Age-related brain parenchymal changes with chronic small vessel ischemic disease and brain parenchymal volume loss. REFERENCE 02/14/2016 ECHO: Summary: 1. LVEF 50%. 2. No pericardial effusion. 3. Mild . 4. Mild AV regurgitation. 5. LUKE calculated at 1.9 cm2. 6. Mild pulmonary valve regurgitation. 7. Mild tricuspid valve regurgitation. Discharge Disposition Discharged home. Instructions * You were evaluated and treated for an episode of increased confusion. Based on the workup done in the hospital, there was no clear cause of this episode. You were, however, noted to have high blood pressure and this can sometimes lead to transient confusion. (This is called "hypertensive urgency.") Because of this your blood pressure medications have been adjusted. Review your discharge medication list and the drug handouts provided. * Your B12 level was checked prior to discharge. If this is low your doctor can order B12 supplements. * You had a CT scan of your head which showed no acute changes to account for confusion. An MRI can provide additional information. A prescription for brain MRI was provided at discharge. Call the [facility] Radiology Department on Friday to schedule the MRI. * You were noted to have slow heart rate during this hospitalization. This could lead to poor circulation in the brain and could contribute to confusion. Even though you had high blood pressure this admission, your dose of metoprolol should be lowered because it can cause low heart rate. You can split your current pills in half. See your discharge medication list for details. * To help in your recovery, outpatient physical and occupational therapy have been ordered. Called the [facility] Therapy Department on Friday to schedule your visit. Activity Instructions Because of episodes of confusion, you should no longer drive. Appointments Follow-up with your primary care doctor in 3-5 days. Have your MRI scheduled at [facility]. Call the therapy department as directed to scheduled outpatient physical therapy and occupational therapy. Discharge Diet: Heart Healthy Discharge Medications New Medications: Metoprolol Tartrate (Metoprolol Tartrate) 25 Mg Tablet 12.5 MG PO BID #30 Ref 0 TAB Hydrochlorothiazide (Hctz) 25 Mg Tablet 25 MG PO DAILY #30 Ref 0 TAB Lisinopril (Lisinopril) 20 Mg Tablet 20 MG PO DAILY #30 Ref 0 TAB Continued Medications: Allopurinol (Allopurinol) 100 Mg Tablet 100 MG PO DAILY TAB Omeprazole (Omeprazole) 20 Mg Capsule.dr 20 MG PO DAILY #90 Simvastatin (Simvastatin) 20 Mg Tablet 20 MG PO HS TAB Tamsulosin HCl (Tamsulosin HCl) 0.4 Mg Cap.er.24h 0.4 MG PO DAILY Bph Ref 0 CAP Follow up New Orders: MRI BRAIN W&W/O MRA HEAD W/O - Within 1 week RENAL PROFILE - Within 1 week Discharge Diagnosis See list above. Problems: Copies to: End of Report . JULIANO DELEON MD Nov 24, 2016 17:32
== END 2016-11-24 14:26 | disposition home or self-care (01) ==
LOC: ED 15:03 → MED/SURG 18:06
PROVIDERS: ADMIT Internal Medicine; ATTEND Internal Medicine
DX: I16.0 Hypertensive urgency (principal); F05 Delirium due to known physiological condition; F03.90 Unspecified dementia, unspecified severity, without behavioral disturbance, psychotic disturbance, mood disturbance, and anxiety; R00.1 Bradycardia, unspecified; I10 Essential (primary) hypertension; E78.5 Hyperlipidemia, unspecified; K21.9 Gastro-esophageal reflux disease without esophagitis; N40.0 Benign prostatic hyperplasia without lower urinary tract symptoms; I25.10 Atherosclerotic heart disease of native coronary artery without angina pectoris; I25.2 Old myocardial infarction; Z87.891 Personal history of nicotine dependence; Z79.82 Long term (current) use of aspirin
CPT/HCPCS: 36415; 70450; 71020; 80053; 80069; 81003; 82607; 83921; 85025; 86140; 96372; 99283; A9270; G0378; J1650; 99218

== ENCOUNTER → 2016-11-29 | Outpatient (CLI) | payer MEDICARE, OTHER ==
[~2016-11-29] MED LIST changes: +ALLO100T PO; +HCT25T PO; +LSNP20T PO; +SMV20T PO; +TAMS0.4C2 PO
--- NOTE | 2016-11-29 13:41 | Diagnostic Imaging Report ---
CLINICAL INDICATION: Patient with mental disorder and altered mental status. EXAMS: 1: MRI of the brain performed without and with 7 cc of ProHance IV contrast. Sequences include axial DWI, ADC map, coronal gradient echo, axial T2, axial proton-density, sagittal T1, axial FLAIR, axial T1, axial T1 post IV contrast, and coronal T1 fat-sat post IV contrast. 2: MRA of the [place] without contrast using 3D [id number]. Rotating 3D MIP images were created to better evaluate anatomy. COMPARISON: Head CT without IV contrast dated 11/22/2016. FINDINGS: MRI brain: Motion artifact limits evaluation. There is no evidence of acute cerebral infarct, intracranial hemorrhage, or gross mass effect. There is no abnormal IV contrast enhancement seen on this exam. There is mild patchy and confluent areas of high T2 signal white matter changes in the periventricular regions. There is normal kendrick-white matter distinction. The brain parenchymal volume appears appropriate for patient's age. There is no significant midline shift or herniation. The visualized [place] vascular structures have normal flow void appearance. There is no evidence of hydrocephalus. The basal cisterns are unremarkable. The skull, extracranial soft tissue, and orbits are unremarkable. There is mild mucosal thickening involving the ethmoid sinus and both maxillary sinuses. MRA of the [place]: There is loss of signal within the intradural right vertebral artery with signal seen in the distal intradural right vertebral artery. This area is noted to have no signal on the T1 sequence, have low T2 flow void, and demonstrates enhancement on the post contrast sequence. It is suspected that this vessel is patent. There is a lobulated area seen near the distal intradural left vertebral artery which measures roughly 2.4 mm as seen on series 9, image 86. It is unknown if this represents artifact or an aneurysm. There are also some areas of low signal within the bilateral MCA which may just be related to artifact. Otherwise, there is no major [place] vascular stenosis. IMPRESSION: 1: There is a prominent area of signal near the distal intradural left vertebral artery. An aneurysm should be excluded. CT angiogram of the [place] and neck is suggested for further evaluation. 2: There is decreased signal within the intradural right vertebral artery which is suspected to be artifact. This also could be further evaluated with CT angiogram. 3: There is otherwise no major vascular stenosis of the [place]. 4: Age-related brain parenchymal changes with no evidence of acute intracranial process. Dictated by: Dictated on workstation # [id number]
== END ==
LOC: RAD 10:21
PROVIDERS: ATTEND Internal Medicine
DX: F99 Mental disorder, not otherwise specified (principal); R41.82 Altered mental status, unspecified; R41.89 Other symptoms and signs involving cognitive functions and awareness
CPT/HCPCS: 70544; 70553; A9579

== ENCOUNTER 2016-12-19 09:00 | Outpatient (RCR) | payer MEDICARE, OTHER ==
--- NOTE | 2016-11-29 10:41 | PT/OT/ST INITIAL EVALUATION ---
Department of Health and Human Services Form Approved Health Care Financing Administration OMB No. [id number] PLAN OF CARE/ASSESSMENT FOR OUTPATIENT REHABILITATION (Complete for Initial Claims Only) 1. PATIENT'S NAME Isidoro Monge 2. ACC # [id number] [facility]. [id number] 4. PROVIDER NO. [id number] 5. TYPE: PT 6. PRIOR HOSPITALIZATION None 7. PRIMARY DX Deconditioning 8. SECONDARY DX Altered mental status 9. ONSET DATE 11/22/2016 10. REFERRAL DATE 11/27/2016 11. SOC. DATE 11/27/2016 12. TIME OF EVAL 14:[address] Juliano Deleon 13. CHARGES/UNITS Evaluation 14. G CODES CH 15. PRIOR LEVEL OF FUNCTION; PERTINENT HISTORY (Prior therapy results, reason for referral.) S: Reason for referral: The patient was referred to physical therapy by Dr. Deleon following a short stay in the hospital due to deconditioning and altered mental status. Primary Complaint: The patient presents to physical therapy with his son, who reports that his father had locked out himself out of his home on Friday and then had walked to their local bank due to being confused. He was then admitted to the hospital for observation over the weekend. He was then discharged and outpatient services were ordered. The son noted that his confusion has been getting better over the past couple of days. Occupational and social history: The patient lives at home with his son, who is the primary caregiver. Personal health rating: The patient rates his overall health as fair. Activity level: The patient's son reports he is very active and usually walks a couple of miles a day. Past medical history: Includes a heart attack in 1990, hernia repair. Patient's Goal: The patient hopes therapy will help. 16. INITIAL ASSESSMENT/SAFETY PRECAUTIONS/MEDICAL COMPLICATIONS (Level of function at start of care. Be specific, use objective measures, list problems.) O: APPEARANCE, OBSERVATION AND GAIT: The patient is an elderly 81-year-old male. He ambulates into physical therapy with slight forward head posture and mildly rounded shoulders. Minimal arm swing with gait. Demonstrates good overall balance and steadiness with gait and changing directions. RANGE OF MOTION/FLEXIBILITY: Cervical flexion normal limits, extension 40%. Bilateral cervical rotation was normal limits. Shoulder range of motion was normal limits in all directions. Lower extremity range of motion and flexibility at hips, knees and ankles were good. STRENGTH: Right shoulder strength was 5/5 manual muscle test. Left shoulder flexion and abduction were 4-/5 manual muscle test. Internal and external rotation was 4+/5 manual muscle test. Lower extremity strength was 5/5 manual muscle test at hips, knees and ankles bilaterally. FUNCTIONAL ACTIVITIES: Performed single leg balance with patient, less than 5 seconds on both the left and right side. Performed weight shifting on both the floor and Airex pad without difficulty. Standing with eyes closed, the patient had no difficulty. Performed upper level gait activities, such as walking forwards, backwards, sideways and marching without any loss of balance or unsteadiness. The patient was also able to walk forward, turning his head side to side, and later up and down without any loss of balance or unsteadiness. The patient was able to ascend and descend stairs, alternating step with good stability and control. TODAY'S TREATMENT: Included initial evaluation. 17. INITIAL POC: (Specify procedures, modalities, short and long-term goals) A: The patient demonstrates good functional mobility and strength to performed normal daily activities safely. P: Discharge patient to home with son to resume normal daily activities. 18. FREQUENCY Evaluation only 19. DURATION NA 20. FUNCTIONAL LEVEL (End of claim period) 21. PHYSICIAN SIGNATURE ? ON FILE OR ENTER HERE: 22. DATE: I certify the need for these services furnished under this plan of care and if for partial hospitalization. 23. CERTIFICATION FROM THROUGH [id number]
--- NOTE | 2016-12-02 13:34 | PT/OT/ST INITIAL EVALUATION ---
Department of Health and Human Services Form Approved [facility] Care Financing Administration OMB No. [id number] PLAN OF CARE/ASSESSMENT FOR OUTPATIENT REHABILITATION (Complete for Initial Claims Only) 1. PATIENT'S NAME Isidoro Monge 2. ACC # [id number] 3. HICN 4. PROVIDER NO. [id number] 5. TYPE: OT 6. PRIOR HOSPITALIZATION NA 7. PRIMARY DX Deconditioning and altered mental status. 8. TREATMENT DX Attention and concentration deficit, weakness. 9. ONSET DATE Approximately 2 months ago 10. REFERRAL DATE 11/27/2016 11. SOC. DATE 11/27/2016 12. TIME OF EVAL 3:02 p.m. to 4:07 p.m. 12. REFERRING PHYSICIAN Dr. Deleon 13. CHARGES/UNITS 65 total 50 [id number] moderate complexity. 15 therapeutic activity 14. G CODES [id number] 15. PRIOR LEVEL OF FUNCTION; PERTINENT HISTORY (Prior therapy results, reason for referral.) S: Reason for referral: The patient is an 81-year-old male referred by Dr. Deleon to address occupational and memory concerns. Description/mechanism of injury: Son provided most of history this date. The son reports the patient has been more confused the past couple of months. The patient recently locked himself out of the house and walked down to the bank. Son was called in to package pick up patient. The patient was recently in the hospital from 11/22/2016 to 11/24/2016 for altered mental status. The son reports increased confusion with daily activities. Pt was recommended from physician to not complete driving at this time secondary to difficulties with memory. Home set up/Prior level of function: The patient lives with his son in a one-level home. Prior to onset, the patient was independent with ADL and simple IADL tasks. Pt was previously driving. Current functional performance and deficits: The patient completes ADL tasks with independence. The son reports the patient has been asking more often in the last couple of weeks about what time it is and what day it is. Additionally the son reports the patient has been walking slower in the past 4 months. Per patient, he is not worried about his driving, but says he has had a little bit of difficulty remembering some things. Son completes most IADL tasks including cooking and cleaning tasks. Son has recently been completing and watching pt's medication's secondary to pt not taking consistently. Pt reports he likes to go car racing, read and watch television. 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 Pain level and location: 0/10. Personal health rating: Fair. Past medical history: Arthritis, heart attack, high blood pressure, and heart problems. Therapy History: No previous therapy services completed. Current medications: Metoprolol, simvastatin, hydrochlorothiazide, allopurinol, lisinopril, tamsulosin, omeprazole, aspirin, namenda. No medication to complicate therapy. Patient's Goal: The patient's and family's goals are to learn strategies to help with remembering better and to help with some of the problems they have been having. 16. INITIAL ASSESSMENT/SAFETY PRECAUTIONS/MEDICAL COMPLICATIONS (Level of function at start of care. Be specific, use objective measures, list problems.) O: APPEARANCE AND OBSERVATION: The patient appeared to his initial occupational therapy evaluation this date. Per observation, the patient appeared to be somewhat agitated when son was talking about his difficulty with memory. The patient reports he is not worried about his driving and completing other activities. States there will be times he will have trouble with the time and day, but he needs to be given the benefit of the doubt. Noted- the patient required directions during assessment to be given multiple times to fully understand. Pt demonstrated within functional limits of bilateral shoulder, elbow and wrist planes. Pt demonstrates 4-/5 strength bilaterally. ASSESSMENTS: The Sina Cognitive Asessment (MOCA) was completed this date with a score of 12 out of 30. The patient demonstrated difficulty with visuospatial and executive skills, naming, attention, delayed recall and orientation. The patient reports he thought the year was 1976 and had difficulty with responding to the correct date. With delayed recall, the patient was unable to name 5 words provided previously by therapist. CONTRAINDICATIONS, PRECAUTIONS AND OBSTACLES TO DELIVERY OF CARE: None. INFORMED CONSENT: The occupational therapist discussed the OT diagnosis, prognosis, treatment plan, risks and expected outcome with the patient. The patient and family agreed to the OT plan of care this date. TODAY'S TREATMENT: Today's treatment included education about occupational therapy and the occupational therapy process. Additionally provided the patient and son on strategies to help with internal memory including use of a calendar and writing down notes to help with memory. The patient was given handouts on these strategies. 17. INITIAL POC: (Specify procedures, modalities, short and senior living goals) A: The patient presents to occupational therapy with attention and concentration deficits and decreased working and short term memory skills secondary to altered mental status. The patient would benefit from skilled occupational therapy services for design and administration of therapeutic activities to provide strategies and recommendations on ways to improve memory for improved performance at home and in the community. PROBLEMS/IMPAIRMENTS/FUNCTIONAL LOSS: Include decreased memory skills and deficits in higher level executive functioning, which impacts the patient's ability to complete IADL tasks in a safe and independent manner. INTENDED OUTCOMES: Include provide education and strategies on ways to improve performance within the home and community. Additionally improve attention skills during daily activities. PROGNOSIS: The patient is expected to have a good prognosis with consistent therapy attendance, completion of home exercise program and following therapist's recommendations. SHORT TERM GOALS: X 3 WEEKS 1. The patient will verbalize and demonstrate compliance with home program and carryover of strategies. 2. The patient will demonstrate ability to apply external and internal memory strategies during functional tasks with minimal prompting to improve independence with daily activities. [employer] GOALS: X 5 WEEKS 1. The patient will demonstrate an increase on the MOCA of 5 or more points to allow for improved performance and independence with simple IADL tasks. 2. The patient will demonstrate ability to navigate the hospital with use of memory strategies and modified independence to improve planning and organization of daily tasks. P: Plan to treat the patient 2 times a week for 5 weeks in order to address occupational concerns. Treatment is to include therapeutic exercise, therapeutic activities, ADLs/self-care, patient education/home exercise program and other treatments as indicated. 18. FREQUENCY 2 times a week 19. DURATION 4 weeks 20. FUNCTIONAL LEVEL (End of claim period) 21. PHYSICIAN SIGNATURE ? ON FILE OR ENTER HERE: 22. DATE: I certify the need for these services furnished under this plan of care and if for partial hospitalization. 23. CERTIFICATION FROM THROUGH [facility]-700
== END 2016-12-23 11:09 | disposition home or self-care (01) ==
LOC: OT 09:00
PROVIDERS: ATTEND Internal Medicine
DX: R53.83 Other fatigue (principal); R41.82 Altered mental status, unspecified
CPT/HCPCS: 97161; 97166; 97530; G8978; G8979; G8980; G9168; G9169